=== PATIENT | male | born 1965 | race Caucasian/White ===

== ENCOUNTER → 2016-12-29 | Outpatient (CLI) | payer OTHER ==
[~2016-12-29] MED LIST: BENZOCAINE ONE 20% MUCOSAL SPRAY.; MIDAZOLAM HCL/PF 2 MG/2 ML VIAL. ONE; fentaNYL PF VIAL 100 MCG/2 ML VIAL ONE
--- NOTE | 2017-01-03 16:08 | PCVCIMAG ---
APPROVED REPORT Exam: Nuclear Stress Test Indication: Chest pain, Dyspnea, High Ca Score Patient Location: Out-Patient Stress Nurse: Teresa Davidson RN, Emmanuelle Reese RN CT Tech:Amee DAGO Clifford Ht: 6 ft 1 in Wt: 195 lbs BSA: 2.13 m2 HR: 76 bpm BP: 123/74 mmHg BMI: 25.7 Rhythm: NSR Medical History Medical History: Age, HTN Medications: Atorvastatin, Zyrtec Allergies: No known drug allergies Pretest Chest Pain Characteristics: No chest pain Exercise History: Physically active NM EXAM: Myocardial Perfusion REST/STRESS Imaging Protocol: Rest Tc-99m/Stress Tc-99m 1 day Resting Data Rest SPECT myocardial perfusion imaging was performed in supine position 45 minutes following the intravenous injection of 10.7 mCi of Tc-99m Sestamibi. Time of rest injection: 814 Date: 12/29/2016 Administration Route: IV Administration Site: Right AC Pharmacologic Stress Pharmacologic stress test was performed by injecting Regadenoson 0.4 mg IV push followed by the intravenous injection of 33.4 mCi of Tc-99m Sestamibi. Time of stress injection: 929 Date: 12/29/2016 Administration Route: IV Administration Site: Right AC Gated Stress SPECT was performed 45 minutes after stress injection. The images were gated to evaluate regional wall motion and calculate left ventricular ejection fraction. Study Data Post stress, the left ventricular ejection was 74%.. SSS: 0 SRS: 3 SDS: 0 TID = 0.77. Perfusion There is a medium area of mildly reduced uptake in the mid and apical segment of the anterior wall which is seen on the stress images as well as the resting images. This area thickens and moves normally and is most consistent with attenuation artifact. Wall Motion Normal left ventricular wall motion. Nuclear Conclusion 1. LOW RISK STUDY Interpreted by: Mary Kay Hernandez MD Electronically Approved: 01/03/2017 16:05:58 Stress Test Details Stress Test: Exercise stress testing was performed using a [place] protocol. HR Resting HR: 76 bpmMax Heart Rate (APMHR): 170 bpm Max HR Achieved: 173 bpmTarget HR (85% APMHR): 144 bpm % of APMHR: 101 Recovery HR: 89 bpm HR response to stress: Normal HR response to stress BP Resting BP: 123/74 mmHg Max BP: 178/80 mmHg BP response to stress: Normal blood pressure response to stress. ECG Resting ECG: Sinus Rhythm Stress ECG: Sinus Tachycardia ST Change: Upsloping ST depression Maximum ST Deviation: 2 mm Arrhythmia: None Recovery ECG: Sinus Rhythm Clinical Reason for Termination: Fatigue Stress Symptoms: Fatigue Exercise duration: 13 min 25 sec Exercise capacity: 17.2 METs Overall Exercise Capacity for Age: Good Scale: Active Angina Score: None Stress ECG Conclusion 1. SUBJECTIVELY NEGATIVE FOR ISCHEMIA 2. ELECTROCARDIOGRAPHICALLY NEGATIVE FOR ISCHEMIA 3. EXCELLENT FUNCTIONAL CAPACITY Hernandez Treadmill Score is 3.0 which is Moderate risk. <Conclusion> 1. SUBJECTIVELY NEGATIVE FOR ISCHEMIA 2. ELECTROCARDIOGRAPHICALLY NEGATIVE FOR ISCHEMIA 3. EXCELLENT FUNCTIONAL CAPACITY
== END | disposition home or self-care (01) ==
LOC: PCVCIMAG 08:02
PROVIDERS: ATTEND Internal Medicine
DX: R07.9 Chest pain, unspecified (principal); R06.00 Dyspnea, unspecified; E83.59 Other disorders of calcium metabolism
CPT/HCPCS: 78452; 93017; A9500; J2250; J3010